=== PATIENT | female | born 1955 | race Caucasian/White ===

== ENCOUNTER → 2016-09-14 | Outpatient (CLI) | payer OTHER | LOC: BMCIMAGING 17:11 | PROVIDERS: ATTEND Emergency Medicine | DX: M79.671 Pain in right foot (principal) ==

== ENCOUNTER 2017-01-08 07:38 | Day surgery (SDC) | payer OTHER ==
[2017-01-08] MEDS ORDERED: BENZOCAINE UNIT DOSE SPRAY HURRICAINE MM ONE (07:42)
[2017-01-08] MEDS ORDERED: MIDAZOLAM 2 MG/2 ML VIAL IVP ONE (07:42)
[2017-01-08] MEDS ORDERED: fentaNYL 100 MCG/2 ML INJ IVP ONE (07:42)
[2017-01-08] MEDS ORDERED: NS 500 ML IV ONE (07:42)
--- NOTE | 2017-01-08 09:40 | PDHPUP ---
History & Physical Update H&P update statement: This history and physical update is based on an assessment of the patient which was completed after admission or registration (within 24 hours), but prior to the surgery/procedure. H&P update: H&P reviewed & patient examined, no change in patient's condition since H&P completed
--- NOTE | 2017-01-08 09:40 | PDPROPOC ---
Sedation Plan of Care Sedation Plan of Care: vital signs stable, mental status noted, patient educated of risks, benefits, alternatives, patient can tolerate sedation ASA Classification: ASA 1 Mallampati Score: Class 2 332 Rule: 332
--- NOTE | 2017-01-08 10:11 | POSTOPPROG ---
Post Op Note Date of Operation: 01/08/17 Surgeon: Vanessa Ventura Anesthesia: IV Sedation Pre-op Diagnosis: abnormal TTE Post-op Diagnosis: normal variant of interatrial septum with prominent Eustachian ridge Indication: abnormal TTE Procedure: normal EBENEZER Findings: see report. In summary, normal biventricular systolic function. 1-2+ MR Inf/Abcess present in the surg proc area at time of surgery?: No Total fluids administered: 250 cc NS Complications: none Specimen(s): none
== END 2017-01-08 12:15 | disposition home or self-care (01) ==
LOC: FCATH 07:38
PROVIDERS: ATTEND Internal Medicine Cardiovascular Disease
PROC: B245ZZ4 Ultrasonography of Left Heart, Transesophageal (ICD-10-PCS; principal; 2017-01-08)
DX: R93.1 Abnormal findings on diagnostic imaging of heart and coronary circulation (principal); E78.5 Hyperlipidemia, unspecified
CPT/HCPCS: J2250; J3010

== ENCOUNTER → 2017-01-24 | Outpatient (CLI) | payer OTHER | LOC: BMCIMAGING 10:25 | PROVIDERS: ATTEND Internal Medicine Endocrinology, Diabetes & Metabolism | DX: M81.0 Age-related osteoporosis without current pathological fracture (principal) ==

== ENCOUNTER → 2017-01-25 | Outpatient (CLI) | payer OTHER | LOC: BMCIMAGING 15:22 | PROVIDERS: ATTEND Family Medicine Sports Medicine | DX: Z12.31 Encounter for screening mammogram for malignant neoplasm of breast (principal) | CPT/HCPCS: G0202 ==

== ENCOUNTER → 2018-03-21 | Outpatient (CLI) | payer OTHER | LOC: BMCIMAGING 15:05 | PROVIDERS: ATTEND Physician Assistant | DX: Z12.31 Encounter for screening mammogram for malignant neoplasm of breast (principal) ==